=== PATIENT | female | born 1950 | race Caucasian/White ===

== ENCOUNTER 2018-09-06 07:04 | Day surgery (SDC) | payer OTHER ==
[~2018-09-06 07:04] MED LIST: SEVOFLURANE 15 MIN
[2018-09-06] MEDS ORDERED: LIDOCAINE 1% (MPF) 30 ML INJ (09:30)
[2018-09-06] MEDS ORDERED: DEXAMETHASONE 4 MG/ML 1 ML INJ (09:31)
[2018-09-06] MEDS ORDERED: ONDANSETRON 4 MG INJ (09:42)
[2018-09-06] MEDS ORDERED: METOCLOPRAMIDE 10 MG INJ (09:42)
[2018-09-06] MEDS ORDERED: MEPERIDINE 100 MG INJ (09:42)
[2018-09-06] MEDS ORDERED: PROPOFOL 20 ML (09:42)
[2018-09-06] MEDS ORDERED: LIDOCAINE 2% (SDV) 5 ML INJ (09:42)
[2018-09-06] MEDS ORDERED: LACTATED RINGER'S 1,000 ML IV (10:00)
[2018-09-06] MEDS ORDERED: ATROPINE 1 MG/10 ML SYRINGE (10:08)
[2018-09-06] MEDS: BUPIVACAINE 0.5% (SDV) 30 ML INJ (10:23)
[2018-09-06] MEDS: POVIDONE IODINE 10% 28.4 GM OINT (10:23)
[2018-09-06] MEDS ORDERED: MIDAZOLAM 1 MG/ML 2 ML INJ IV (10:30)
[2018-09-06] MEDS ORDERED: LABETALOL HCL 20MG INJ IV (10:30)
[2018-09-06] MEDS ORDERED: hydrALAzine 20 MG INJ IV (10:30)
[2018-09-06] MEDS ORDERED: ONDANSETRON 4 MG INJ IV (10:30)
[2018-09-06] MEDS ORDERED: FENTAnyl 50 MCG/ML VIAL IV ×3 (10:30)
[2018-09-06] MEDS ORDERED: EPHEDrine 25 MG/5 ML SYG IV (10:30)
[2018-09-06] MEDS ORDERED: MEPERIDINE 25 MG INJ IV (10:30)
[2018-09-06] MEDS ORDERED: METOCLOPRAMIDE 10 MG INJ IV (10:30)
[2018-09-06] MEDS ORDERED: DIPHENHYDRAMINE 50 MG INJ IV (10:30)
[2018-09-06] MEDS ORDERED: OXYCODONE/ACETAMINOPHEN (5/325) TAB PO ×2 (10:30)
[2018-09-06] MEDS ORDERED: EPHEDrine 25 MG/5 ML SYG (10:35)
== END 2018-09-06 13:10 | disposition home or self-care (01) ==
LOC: SDS 07:04
DX: M20.11 Hallux valgus (acquired), right foot (principal); M21.611 Bunion of right foot; I10 Essential (primary) hypertension; E03.9 Hypothyroidism, unspecified; Z87.891 Personal history of nicotine dependence
CPT/HCPCS: 28299; 88304; 88311